=== PATIENT | female | born 1940 | race Caucasian/White ===

== ENCOUNTER 2021-08-31 09:25 | Inpatient (IN) | payer MEDICARE ==
[~2021-08-31] VITALS: Ht 165.1 cm; Wt 75.5 kg
[~2021-08-31 09:25] MED LIST: ACET500T68 PO; ASPI-424 PO; ATOR40TA59 PO; BUTA-177 PO; CARV3.1210 PO; CEPH500T PO; FLUT16SP NS; FURO20TA3 PO; GABA300C18 PO; MAGN400T48 PO; MELA5TAB20 PO; MULT-114 PO; OXYC5TAB88 PO; POLY17PO29 PO; QUIN5TAB13 PO; SENN8.6T11 PO; TAMS0.4C97 PO; TURM500C4 PO; UBID200C7 PO; WARF3TAB50 PO; prostat PO
[2021-08-31] MEDS ORDERED: PIPERACILLIN/TAZOBACTAM 4.5 GM in IV DEXTROSE 5% 100ML 100 ML IV ONE (09:30)
[2021-08-31] MEDS ORDERED: VANCOMYCIN 1.5 GM in IV NORMAL SALINE 500ML BAG 500 ML IV ONE (09:30)
[2021-08-31] MEDS ORDERED: IV NORMAL SALINE 1000ML BAG 1,000 ML IV ONE (09:30)
[2021-08-31 09:59] LABS: BASO # 0.1 x10^3/uL (0.0-0.2); BASO % 1 % (0-3); EOS # 0.1 x10^3/uL (0.0-0.7); EOS % 2 % (0-3); HEMATOCRIT 26.8 % (36.0-47.0); HEMOGLOBIN 8.4 g/dL (12.0-15.5); LYMPH # 1.2 x10^3/uL (1.0-4.8); LYMPH % 26 % (24-48); MEAN CORPUSCULAR HEMOGLOBIN 25 pg (25-35); MEAN CORPUSCULAR HGB CONC 31 g/dL (31-37); MEAN CORPUSCULAR VOLUME 79 fL (79-100); MONO # 0.4 x10^3/uL (0.0-1.1); MONO % 9 % (0-9); NEUT % 62 % (31-73); PLATELET COUNT 218 x10^3/uL (140-400); RED BLOOD COUNT 3.38 x10^6/uL (3.50-5.40); RED CELL DISTRIBUTION WIDTH 16.6 % (11.5-14.5); WHITE BLOOD COUNT 4.9 x10^3/uL (4.0-11.0)
[2021-08-31 10:18] LABS: CALCIUM 7.4 mg/dL (8.5-10.1); CREATININE 0.8 mg/dL (0.6-1.0); GFR 68.7; POTASSIUM 4.6 mmol/L (3.5-5.1)
--- NOTE | 2021-08-31 10:20 | RAD ---
EXAM: Chest, single view. HISTORY: Covid. Sepsis. Hypoxia. COMPARISON: 08/11/2021 FINDINGS: A frontal view of the chest obtained. There is stable diffuse increased interstitial opacit y. There is stable cardiomegaly. There is a cardiac pacemaker in expected position. There is no pneum othorax or pleural effusion. IMPRESSION: Stable diffuse interstitial prominence and cardiomegaly. Electronically signed by: Tonia Delgado MD (08/31/2021 10:18 AM) [facility]
[2021-08-31 10:29] LABS: ALBUMIN 1.8 g/dL (3.4-5.0); ALBUMIN/GLOBULIN RATIO 0.5 (1.0-1.7); TOTAL BILIRUBIN 0.3 mg/dL (0.2-1.0); TOTAL PROTEIN 5.6 g/dL (6.4-8.2)
[2021-08-31] MEDS ORDERED: HALOPERIDOL LACTATE 5 MG/ML VIAL. IVP ONE (10:45)
[2021-08-31 10:51] LABS: BILIRUBIN,URINE SMALL (NEG); COLOR,URINE AMBER; NITRITE,URINE POSITIVE (NEG); PROTEIN,URINE >=300 mg/dL (NEG-TRACE)
[2021-08-31 10:52] LABS: INFLUENZA A PATIENT NEGATIVE (NEGATIVE); INFLUENZA B PATIENT NEGATIVE (NEGATIVE)
--- NOTE | 2021-08-31 10:55 | PHYS DOC ---
Past Medical History Past Medical History: A-Fib, Anemia, CHF, COPD, Hypertension, TIA Additional Past Medical Histor: UIRNARY RETENTION, WARFARIN, DVT W/ SX, NEUROPATHY, HEADACHE, CONFUSION Past Surgical History: Cholecystectomy, Hysterectomy Additional Past Surgical Histo: DVT REMOVAL Smoking Status: Unknown if ever smoked Alcohol Use: None Drug Use: None General Adult EDM: Chief Complaint: ALTERED MENTAL STATUS HPI: HPI: Patient is a 80 year old female with history of A. fib, DVT, COPD, CHF, chronic wounds with left groin wound vac, chronic indwelling lei who presents with hypoxia after testing positive for COVID today 08/31/21. Was hypoxic to mid 80s on room air. Has been become increasingly agitated. Per her PCP she has been frequently agitating it and screaming for the past several weeks. They have tried different medications as an outpatient, not yet with success. Patient states that she "hurts everywhere." Unable to obtain further history from patient due to mental status. Review of Systems: Review of Systems: Unable to obtain due to mental status Heart Score: C/O Chest Pain: N/A Current Medications: Current Medications Medications (Trade) Dose Ordered Sig/Genet Start Time Stop Time Status Last Admin Dose Admin Haloperidol Lactate (Haldol Inj) 1 mg 1X ONCE 08/31/21 10:45 08/31/21 10:46 Piperacillin Sod/ Tazobactam Sod 4.5 gm/Dextrose 100 ml @ 200 mls/hr 1X ONCE 08/31/21 09:30 08/31/21 09:59 DC 08/31/21 09:59 200 MLS/HR Sodium Chloride 1,000 ml @ 1,000 mls/hr 1X ONCE 08/31/21 09:30 08/31/21 10:29 DC 08/31/21 09:59 1,000 MLS/HR Vancomycin HCl 1.5 gm/Sodium Chloride 500 ml @ 250 mls/hr 1X ONCE 08/31/21 09:30 08/31/21 11:29 08/31/21 09:59 250 MLS/HR Allergies: Allergies: Allergies Coded Allergies Type Severity Reaction Last Updated Verified Sulfa (Sulfonamide Antibiotics) Allergy Intermediate 08/11/21 Yes acetaminophen Allergy Intermediate 08/11/21 Yes dextromethorphan Allergy Intermediate 08/11/21 Yes doxylamine Allergy Intermediate 08/11/21 Yes hydrocodone Allergy Intermediate 08/11/21 Yes morphine Allergy Intermediate 08/11/21 Yes oxycodone Allergy Intermediate 08/11/21 Yes pseudoephedrine Allergy Intermediate 08/11/21 Yes Physical Exam: PE: Constitutional: Nontoxic appearing HENT: Normocephalic, atraumatic Neck: Normal range of motion, no tenderness, supple, no stridor. [] Cardiovascular:Heart rate regular rhythm, no murmur [] Lungs & Thorax: Bilateral wheezes, normal work of breathing, satting mid 80s on room air. Abdomen: Soft, no discernible tenderness Extremities: No tenderness, no cyanosis, no clubbing, ROM intact, no edema. [] Neurologic: Screaming, agitated, moving all 4 extremities with purpose and intact automotive sales specialist strength. Psychologic: Affect normal, judgement normal, mood normal. [] Current Patient Data: Labs: Laboratory Tests Test 08/31/21 09:30 White Blood Count 4.9 x10^3/uL (4.0-11.0) Red Blood Count 3.38 x10^6/uL (3.50-5.40) L Hemoglobin 8.4 g/dL (12.0-15.5) L Hematocrit 26.8 % (36.0-47.0) L Mean Corpuscular Volume 79 fL (79-100) Mean Corpuscular Hemoglobin 25 pg (25-35) Mean Corpuscular Hemoglobin Concent 31 g/dL (31-37) Red Cell Distribution Width 16.6 % (11.5-14.5) H Platelet Count 218 x10^3/uL (140-400) Neutrophils (%) (Auto) 62 % (31-73) Lymphocytes (%) (Auto) 26 % (24-48) Monocytes (%) (Auto) 9 % (0-9) Eosinophils (%) (Auto) 2 % (0-3) Basophils (%) (Auto) 1 % (0-3) Neutrophils # (Auto) 3.0 x10^3/uL (1.8-7.7) Lymphocytes # (Auto) 1.2 x10^3/uL (1.0-4.8) Monocytes # (Auto) 0.4 x10^3/uL (0.0-1.1) Eosinophils # (Auto) 0.1 x10^3/uL (0.0-0.7) Basophils # (Auto) 0.1 x10^3/uL (0.0-0.2) Sodium Level 139 mmol/L (136-145) Potassium Level 4.6 mmol/L (3.5-5.1) Chloride Level 104 mmol/L (98-107) Carbon Dioxide Level 25 mmol/L (21-32) Anion Gap 10 (6-14) Blood Urea Nitrogen 21 mg/dL (7-20) H Creatinine 0.8 mg/dL (0.6-1.0) Estimated GFR (Cockcroft-Gault) 68.7 BUN/Creatinine Ratio 26 (6-20) H Glucose Level 101 mg/dL (70-99) H Lactic Acid Level 1.1 mmol/L (0.4-2.0) Calcium Level 7.4 mg/dL (8.5-10.1) L Total Bilirubin 0.3 mg/dL (0.2-1.0) Aspartate Amino Transferase (AST) 32 U/L (15-37) Alanine Aminotransferase (ALT) 12 U/L (14-59) L Alkaline Phosphatase 80 U/L (46-116) Troponin I High Sensitivity 54 ng/L (4-50) H Total Protein 5.6 g/dL (6.4-8.2) L Albumin 1.8 g/dL (3.4-5.0) L Albumin/Globulin Ratio 0.5 (1.0-1.7) L Laboratory Tests 08/31/21 09:30 Laboratory Tests 08/31/21 09:30 Vital Signs: Vital Signs Date Time Temp Pulse Resp B/P (MAP) Pulse Ox O2 Delivery O2 Flow Rate FiO2 08/31/21 09:30 101.3 104 22 182/81 (114) 99 Nasal Cannula 2.0 101.3 EKG: EKG: A. fib. Left bundle branch pattern. Left axis deviation. No significant ST changes. [] Radiology/Procedures: Radiology/Procedures: [] Course & Med Decision Making: Course & Med Decision Making Pertinent Labs and Imaging studies reviewed. (See chart for details) Patient 80-year-old female with history of dementia, behavioral disturbance, COPD, CHF, A. fib/DVT on warfarin, chronic left groin wound with wound VAC, indwelling Lei and Covid positive as of today who presents with hypoxia to the mid 80s on room air. On arrival has stabilized on 2 L/min nasal cannula. Vital signs otherwise stable. Febrile in the ED to 101.3 F. Unfortunately has an acetaminophen allergy. Has been treated with IV fluids, broad-spectrum antibiotics. Chest x-ray shows stable interstitial changes. Will be given dexamethasone for COVID and fo audible wheezing. Discussed admission with patient's PCP, Dr. Romero. Will be admitted for further evaluation. [id number] Dragon Disclaimer: Dragon Disclaimer: This electronic medical record was generated, in whole or in part, using a voice recognition dictation system. Departure Departure Impression: Primary Impression: COVID-19 Additional Impressions: Hypoxia Delirium Disposition: ADMITTED INPATIENT Condition: GUARDED Referrals: LUCAS ROMERO MD (PCP) JOSE LUIS ZUNIGA MD Aug 31, 2021 10:55
[2021-08-31] MEDS ORDERED: DEXAMETHASONE SOD PHOS 4 MG/ML VIAL IVP ONE (11:00)
[2021-08-31 11:06] LABS: CLARITY,URINE HAZY
[2021-08-31 11:09] LABS: BACTERIA,URINE MANY /HPF (0-FEW); WBC,URINE TNTC /HPF (0-4)
--- NOTE | 2021-08-31 11:25 | RAD ---
EXAM: Head CT without contrast. HISTORY: Altered mental status. TECHNIQUE: Computed tomographic images of the head were obtained without contrast. *One or more of the following individualized dose reduction techniques were utilized for this examina tion: 1. Automated exposure control. 2. Adjustment of the mA and/or kV according to patient size. 3. Use of iterative reconstruction technique. COMPARISON: 08/12/2021. FINDINGS: There is no acute or subacute extra-axial or intraparenchymal hemorrhage. There is no mass effect or midline shift. There is no hydrocephalus. There are areas of decreased attenuation within the cerebral white matter, nonspecific and likely rel ated to chronic small vessel disease. There is evidence of lens surgery. There is a small amount of mastoid fluid. The paranasal sinuses ar e clear. There is no suspicious calvarial lesion. IMPRESSION: 1. No acute intracranial finding. Note is made that MRI is more sensitive for acute infarction. 2. Bilateral cerebral white matter changes, likely due to chronic small vessel disease. Electronically signed by: Tonia Delgado MD (08/31/2021 11:22 AM) [facility]
[2021-08-31 12:55] VITALS: BP 172/65
[2021-08-31] MEDS ORDERED: FAMO20TA5 PO (13:29)
[2021-08-31] MEDS ORDERED: LORA0.5T96 PO (13:29)
[2021-08-31] MEDS ORDERED: ACETAMINOPHEN 500 MG TABLET PO PRN (13:45)
[2021-08-31] MEDS ORDERED: POLYETHYLENE GLYCOL 3350 17 GM PACKET. PO PRN (13:45)
[2021-08-31] MEDS ORDERED: FLUTICASONE 50MCG/NASAL SPRAY 16GM BOTTLE. NS PRN (13:45)
[2021-08-31] MEDS ORDERED: PIP/TAZO PER PHARMACY MC PRN (14:00)
[2021-08-31] MEDS ORDERED: BUTALB/APAP/CAFEIN 50/325/40MG TABLET. PO PRN (14:00)
--- NOTE | 2021-08-31 14:03 | NUR ---
PT HAS INTACT/WORKING WOUND VAC TO L GROIN AREA, VAC CAME WITH HER FROM FACILITY.
--- NOTE | 2021-08-31 14:17 | HP ---
DATE OF SERVICE: 08/31/2021 ADMIT DATE: 08/31/2021 HISTORY OF PRESENT ILLNESS: The patient is an 80-year-old female patient, a resident at [facility] in [place], who was brought to the Emergency Room with altered mental status. She apparently tested positive for COVID today at that facility and her oxygen saturation was down to 80% on room air. She has been increasingly agitated, stating help me, help me constantly. We tried some Ativan without much success. The patient stated that she is hurting everywhere; however, she is unable to be more specific about what is causing her pain. She was evaluated extensively in the Emergency Room, has had lab work and imaging studies. Her lab work showed that she has normochromic normocytic anemia. Her prothrombin time was 24 and INR of 2.2, which is well within therapeutic range. Her chemistry was mostly unremarkable; however, her urinalysis showed the patient's nitrites were positive. There was large amount of leukocyte esterase, 6-10 rbc's, oga-ooykvkvf-gg-count wbc's and many bacteria. Her influenza A and B were negative; however, SARS-CoV-2 antigen rapid testing was positive. Her CT scan of the head showed no acute intracranial finding. Note is made that MRI is more sensitive for acute infarction, bilateral cerebral white matter changes, likely due to chronic small vessel disease. Her chest x-ray showed that she has stable, diffuse, increased interstitial opacity. There was stable cardiomegaly. There was a cardiac pacemaker in expected position. There was no pneumothorax or pleural effusion. The patient was admitted with COVID-19 infection, acute hypoxic respiratory failure, delirium, urinary tract infection and has multiple wounds on her right big toe, right heel and right calf area as well as on her right gluteal area. She has wounds on the left groin that is covered with wound vacuum-assisted closure device. She was treated with IV vancomycin and Zosyn and was admitted for further evaluation and treatment. PAST MEDICAL HISTORY: Significant for atrial fibrillation, rate controlled, well anticoagulated; nonischemic cardiomyopathy; age-related macular degeneration; hypertension; obstructive sleep apnea; sick sinus syndrome, status post permanent pacemaker; blood loss anemia; TIA; chronic combined congestive heart failure and chronic hypoxic respiratory failure. PAST SURGICAL HISTORY: Significant for permanent pacemaker implantation, cholecystectomy, total abdominal hysterectomy, bilateral salpingo-oophorectomy. She also underwent left lower extremity thrombectomy and developed wound in the left groin covered with wound vacuum-assisted closure device. ALLERGIES: SHE IS ALLERGIC TO TYLENOL, DEXTROMETHORPHAN, DOXYLAMINE, HYDROCODONE, MORPHINE, OXYCODONE, SULFA AND PSEUDOEPHEDRINE. FAMILY HISTORY: Noncontributory. SOCIAL HISTORY: She is currently residing at [facility] in [place]. She used to live with her daughter. She is an ex-smoker, quit more than 40 years ago. She used to drink alcohol. She has retired from the [employer]. REVIEW OF SYSTEMS: Unobtainable. The patient is constantly asking for help; however, she is unable to give me more specific information. MEDICATIONS: She is currently on the following medications: She is on tamsulosin 0.4 mg every 24 hours. She is on warfarin sodium 3 mg at bedtime, atorvastatin calcium 40 mg at bedtime, carvedilol 3.125 mg twice a day with meal, quinapril 5 mg once a day, aspirin 81 mg once a day, butalbital/aspirin/caffeine 1 tablet as needed for headache. She is on oxycodone 5 mg every 4 hours as needed, oxycodone 2.5 mg every 4 hours as needed, acetaminophen 1000 mg every 8 hours, gabapentin 300 mg twice a day, Flonase 1 spray to each nostril twice a day. She is on magnesium oxide 400 mg once a day, polyethylene glycol 17 grams daily p.r.n. for constipation, senna 1 tablet twice a day, multivitamin with mineral 1 tablet once a day and melatonin 5 mg at bedtime. She is also on turmeric root extract 4 capsules daily, CoQ10 200 mg once a day, Pro-Stat 30 mL p.o. b.i.d. PHYSICAL EXAMINATION: GENERAL: On arrival to the Emergency Room, she was pale, not jaundiced or cyanosed. No lymphadenopathy, no thyromegaly, no jugular venous distention. No limb edema. VITAL SIGNS: Her heart rate was 104, blood pressure was 182/81, temperature was 101.3, respiratory rate was 22 and oxygen saturation was 99% on 2 liters of oxygen. HEAD, EYES, EARS, NOSE AND THROAT: Normocephalic, atraumatic. NECK: Supple. HEART: Normal first and second heart sounds. No gallop, rub or murmur. CHEST: Shows central trachea, equal bilateral chest expansion, air entry, vesicular breath sounds. No crepitation or rhonchi. ABDOMEN: Scaphoid, soft, nontender. There is no guarding or rigidity. No organomegaly. All hernial orifice intact. Bowel sounds normal. NEUROLOGIC: She is awake, alert, but confused. All her cranial nerves are intact. She moves upper extremities to a much good extent than lower extremities. She has wound in the left groin area covered with wound vacuum-assisted closure device. She has wounds on the right big toe, right heel, right calf and also on the right buttock. LABORATORY DATA: Her lab work on arrival showed a white cell count 4900, hemoglobin 8.4, hematocrit 26.8, MCV 79 and platelet count 218,000. Her chemistry showed a serum sodium of 139, potassium 4.6, chloride 104, bicarbonate 25, anion gap of 10, BUN 21, creatinine was 0.8. Estimated GFR was 68 mL per minute. Her glucose 101, lactic acid was 1.1, calcium was 7.4. Total bilirubin, AST, ALT, alkaline phosphatase were normal. Her troponin I high sensitivity was 54. Total protein 5.6, albumin was 1.8. Her prothrombin time 24 and INR of 2.2, which is well within therapeutic range. ASSESSMENT AND PLAN: In summary, this is an 80-year-old female patient who was admitted with COVID-19 infection, acute hypoxic respiratory failure, urinary tract infection, multiple necrotic wounds on the right lower extremity involving right big toe, right heel, right calf. She has also an indwelling Martinez catheter and she has urinary tract infection. On arrival, she was febrile and therefore, her blood and urine were sent for culture and sensitivity. My plan is to reconcile all her medications and continue with IV antibiotic. We will arrange for her to have arterial Doppler ultrasound of the right lower extremity. Consult the vascular surgeon as well as the Wound Care team. HARVINDER/ROLANDA DR: Fadumo TID: [id number]
[2021-08-31] MEDS: VANCOMYCIN PER PHARMACY MC PRN (14:34)
--- NOTE | 2021-08-31 14:34 | NUR ---
Pharmacy Vancomycin Dosing Note S:Consulted to monitor and dose vancomycin started 08/31/21. O:MALIHA LOPEZ is a 80 year old F with pneumonia. Height: 5 feet, 5 inches Weight: 77.0 kg Dosing Weight: Actual Other Antibiotics: ZOSYN 4.5G IV Q6HRS LABS: Last BUN: 21 Last Creatinine: 0.8 Creatinine Clearance: 44 mL/min Last WBC: 4.9 Last Procalcitonin: Tmax (past 24 hours): 101.3 Microbiology: BLOOD AND URINE CX PENDING I/O: 1100/- A: Patient requires vancomycin for pneumonia, goal trough 15-20 mcg/ml/ Her SCr is 0.8 with an eCrCl of 44 ml/min. She received vancomycin 1500 mg x 1 in the ER today. Initiate the following, starting 09/01/21: P: 1. Initiate Vancomycin 1250 mg IV q24h 2. Follow up Trough level on 09/02/21 at 0930 3. Pharmacy will continue to monitor, follow and adjust therapy as needed. ANAM NEWTON [facility], 08/31/21 [id number]
[2021-08-31 15:00] VITALS: BP 158/63
[2021-08-31] MEDS: CARVEDILOL 3.125 MG TABLET. PO SCH (16:26)
[2021-08-31] MEDS: WARFARIN 3 MG TABLET. PO SCH (16:27)
[2021-08-31] MEDS: PIPERACILLIN/TAZOBACTAM 4.5 GM in IV DEXTROSE 5% 100ML 100 ML IV SCH (16:57)
--- NOTE | 2021-08-31 18:08 | EKG ---
[facility] [address] [place] [address] Test Date: 2021-08-31 Test Time: 09:46:53 Pat Name: MALIHA LOPEZ Department: Room: 569 1 Gender: F Drywall Hanger: : 1940 Requested By: JOSE LUIS ZUNIGA Order Number: [id number] Reading MD: Lance Salas MD Measurements Intervals [place] Rate: 99 P: MS: QRS: -36 QRSD: 116 T: 104 QT: 380 QTc: 494 Interpretive Statements ATRIAL FIBRILLATION SEPTAL INFARCT PATTERN Electronically Signed On 09-08-2021 16:34:36 [employer] by Lance Salas MD
[2021-08-31 19:15] VITALS: BP 167/84
[2021-08-31] MEDS: FAMOTIDINE 20 MG TABLET. PO SCH (20:31)
[2021-08-31] MEDS: ATORVASTATIN CALCIUM 40 MG TABLET. PO SCH (20:32)
[2021-08-31] MEDS: SENNOSIDES 8.6 MG TABLET PO SCH (20:32)
[2021-08-31] MEDS: LACTOBACILLUS RHAMNOSUS GG 1 CAPSULE. PO SCH (20:32)
[2021-08-31] MEDS: LORazepam 0.5 MG TABLET PO PRN (20:32)
[2021-08-31] MEDS: GABAPENTIN 300 MG CAPSULE. PO SCH (20:32)
[2021-08-31] MEDS: oxyCODONE IR 5 MG TABLET PO PRN (20:32)
[2021-08-31] MEDS ORDERED: NON FORMULARY ITEM (Melatonin 1 TAB) PO SCH (21:00)
[2021-08-31 23:01] VITALS: BP 171/64
[2021-09-01] MEDS: PIPERACILLIN/TAZOBACTAM 4.5 GM in IV DEXTROSE 5% 100ML 100 ML IV SCH ×5 (00:29→23:25)
--- NOTE | 2021-09-01 02:11 | RAD ---
US RIGHT LOWER EXTREMITY ARTERIAL DUPLEX EVAL 08/31/2021 8:02 PM INDICATION: Necrotic lesions COMPARISON: None available. TECHNIQUE: Sonographic evaluation of the right lower extremity arterial system was performed as an g rayscale, color and spectral waveform analysis. FINDINGS: Biphasic waveforms are identified within the common femoral artery, profunda, and proximal to mid sup erficial femoral artery. The distal right superficial femoral artery appears occluded. Monophasic wav eform identified within the popliteal artery. The posterior tibial, peroneal and dorsalis pedis arter ies are not visualized. Common femoral artery: 105 cm/s Profunda artery: 129 cm/s Superficial femoral artery, proximal: 45 cm/s Superficial femoral artery, mid: 38 cm/s Superficial femoral artery, distal: Not visualized and may be occluded Popliteal artery: 47 cm/s Anterior tibial artery: 20 cm/s IMPRESSION: Severe peripheral arterial disease with likely occlusion of the distal right superficial femoral misha ry, posterior tibial artery and peroneal artery. Further evaluation with CT aortic runoff or catheter angiography could be of benefit. Electronically signed by: Yesenia Keyes MD (09/01/2021 2:09 AM) [facility]
[2021-09-01 03:19] VITALS: BP 153/77
[2021-09-01] MEDS: oxyCODONE IR 5 MG TABLET PO PRN ×2 (06:16→19:46)
[2021-09-01 06:58] LABS: HEMOGLOBIN 8.9 g/dL (12.0-15.5); RED BLOOD COUNT 3.54 x10^6/uL (3.50-5.40); RED CELL DISTRIBUTION WIDTH 17.3 % (11.5-14.5); WHITE BLOOD COUNT 4.9 x10^3/uL (4.0-11.0)
[2021-09-01 07:00] VITALS: BP 147/52
[2021-09-01 07:10] LABS: ALBUMIN 1.6 g/dL (3.4-5.0); ALBUMIN/GLOBULIN RATIO 0.4 (1.0-1.7); CALCIUM 7.2 mg/dL (8.5-10.1); CREATININE 0.9 mg/dL (0.6-1.0); GFR 59.9; TOTAL BILIRUBIN 0.5 mg/dL (0.2-1.0); TOTAL PROTEIN 5.9 g/dL (6.4-8.2)
[2021-09-01 07:54] LABS: PROTHROMBIN TIME PATIENT 39.5 SEC (11.7-14.0)
[2021-09-01] MEDS: MULTIVITAMIN with MINERAL TABLET. PO SCH (08:11)
[2021-09-01] MEDS: LACTOBACILLUS RHAMNOSUS GG 1 CAPSULE. PO SCH ×2 (08:11→20:46)
[2021-09-01] MEDS: TAMSULOSIN 0.4 MG CAP.ER.24H. PO SCH (08:11)
[2021-09-01] MEDS: LISINOPRIL 5 MG TABLET. PO SCH (08:11)
[2021-09-01] MEDS: MAGNESIUM OXIDE 400 MG TABLET PO SCH (08:11)
[2021-09-01] MEDS: ASPIRIN ENTERIC COATED 81 MG TABLET.DR. PO SCH (08:12)
[2021-09-01] MEDS: SENNOSIDES 8.6 MG TABLET PO SCH ×2 (08:12→20:46)
[2021-09-01] MEDS: CARVEDILOL 3.125 MG TABLET. PO SCH ×2 (08:12→17:46)
[2021-09-01] MEDS: GABAPENTIN 300 MG CAPSULE. PO SCH ×2 (08:13→20:46)
[2021-09-01] MEDS ORDERED: NON FORMULARY ITEM (Ubidecarenone (Co Q-10) 1 CAP) PO SCH (09:00)
[2021-09-01] MEDS ORDERED: VANCOMYCIN 1.25 GM in IV NORMAL SALINE 250ML 250 ML IV SCH (10:00)
--- NOTE | 2021-09-01 10:17 | PN ---
DATE: 09/01/2021 SUBJECTIVE: The patient is resting slightly propped up in bed, in no apparent distress, sleepy, but arousable. She was very lethargic, probably heavily sedated. She apparently received some Ativan as well as pain medication this morning. PHYSICAL EXAMINATION: GENERAL: When I examined her, she was pale, somewhat cachectic, but not jaundiced or cyanosed. No lymphadenopathy, no thyromegaly, no jugular venous distention. No limb edema. VITAL SIGNS: Her heart rate was 77, blood pressure was 153/77, temperature 97, respiratory rate was 16 and oxygen saturation was 100% on 2 liters of oxygen. HEAD, EYES, EARS, NOSE, AND THROAT: Normocephalic, atraumatic. NECK: Supple. HEART: Showed normal first and second heart sounds. No gallop, rub or murmur. CHEST: Clear to auscultation. No crepitation or rhonchi. ABDOMEN: Distended, soft, nontender. NEUROLOGIC: She is lethargic, but arousable. All cranial nerves intact. She moves upper extremities without difficulty. She has a wound in the left groin area covered with wound vacuum-assisted closure device. She has multiple necrotic wounds on the right big toe, right heel and right calf area. Her intake over the last 24 hours and output are incompletely recorded. LABORATORY DATA: This morning showed a white cell count 4900, hemoglobin 8.9, hematocrit 28, MCV 79 and platelet count of 184,000. Her chemistry showed a serum sodium 140, potassium 4, chloride 105, bicarbonate 24, anion gap of 11, BUN 22, creatinine 0.9. Estimated GFR was 60 mL per minute. Her glucose 172, calcium was 7.2. Her serum ferritin was 250. Total bilirubin, AST, ALT, alkaline phosphatase were normal. Total protein 5.9, albumin was 1.6. Her prothrombin time was 39.5, INR of 4.2. Urinalysis showed that the patient has large amount of leukocyte esterase, too numerous to count wbc's and many bacteria. Her blood culture showed no growth after 1 day. IMAGING: We did actually arterial Doppler ultrasound, which showed that the patient has severe peripheral arterial disease with likely occlusion of the distal right superficial femoral artery, posterior tibial artery and peroneal artery. Further evaluation with CT aortic runoff or catheter angiography could be of benefit. ASSESSMENT: 1. COVID-19 infection. 2. Acute hypoxic respiratory failure. 3. Urinary tract infection. 4. Severe peripheral arterial disease with multiple necrotic wounds on the right lower extremity involving right big toe, right heel and right calf area. 5. She has an indwelling Martinez catheter. 6. The patient has multiple preexisting conditions include: A. Atrial fibrillation, rate controlled, well anticoagulated. B. Nonischemic cardiomyopathy. C. Age-related macular degeneration D. Hypertension. E. Obstructive sleep apnea. F. Sick sinus syndrome, status post permanent pacemaker. G. Blood loss anemia. H. Chronic combined congestive heart failure. PLAN: Obviously to continue with IV antibiotic, await the result of the urine and blood culture. Continue with pain management. Continue with all other medication. Continue to monitor her prothrombin time, INR and adjust Coumadin to maintain INR between 2-2.5. Her INR is supratherapeutic today. We will hold Coumadin. ANTONELLA DR: Fadumo TID: [id number]
[2021-09-01 11:00] VITALS: BP 128/51
--- NOTE | 2021-09-01 13:18 | PDOC2 ---
CONSULT Date of Service Date of Service DATE: 09/01/21 TIME: 13:09 Reason for Consult Reason for Consult: right foot gangrene Identification/Chief Complaint Chief Complaint right foot gangrene Source Source: Chart review, Patient History of Present Illness Reason for Visit: Ms. Kelly is an 80-year-old female who is well-known to our service from a recent admission at [facility] for left lower extremity acute limb ischemia related to atrial fibrillation. She is status post left lower extremity thrombectomy and left groin wound debridement and wound VAC placement. She was seen by Dr. Pineda on 08/07/2021 for a postoperative visit and was found at that time to have right foot pain and gangrenous changes to the right foot. Based on his physical exam findings from his note this appears to have progressed. She does have gangrene of the posterior aspect of the right calf which extends midway up the calf as well as gangrene of the right foot. She is unable to plantar or dorsiflex either foot and she appears to have limited sensation. She does state that she has worsened pain in the right foot and that she is nonambulatory in either lower extremity. Her history is primarily obtained from the chart as she has some degree of confusion at baseline which has worsened apparently with this hospital admission and her Covid positive state. She was on therapeutic anticoagulation with coumadin and has a supratherapeutic INR at this point. Past Medical History Cardiovascular: HTN, Hyperlipidemia CENTRAL NERVOUS SYSTEM: Dementia Musculoskeletal: Osteoarthritis Renal/: No pertinent hx Past Surgical History Past Surgical History: Other (LLE thrombectomy and left groin wound debridement with vac placement) Family History Family History: No Significant Social History ALCOHOL: none Drugs: None Lives: Intermediate Current Problem List Problem List Problems Medical Problems: (1) COVID-19 Status: Acute (2) Delirium Status: Acute (3) Hypoxia Status: Acute Current Medications Current Medications Current Medications Sodium Chloride 1,000 ml @ 1,000 mls/hr 1X ONCE IV Last administered on 08/31/21at 09:59; Start 08/31/21 at 09:30; Stop 08/31/21 at 10:29; Status DC Piperacillin Sod/ Tazobactam Sod 4.5 gm/Dextrose 100 ml @ 200 mls/hr 1X ONCE IV Last administered on 08/31/21at 09:59; Start 08/31/21 at 09:30; Stop 08/31/21 at 09:59; Status DC Vancomycin HCl 1.5 gm/Sodium Chloride 500 ml @ 250 mls/hr 1X ONCE IV Last administered on 08/31/21at 09:59; Start 08/31/21 at 09:30; Stop 08/31/21 at 11:29; Status DC Haloperidol Lactate (Haldol Inj) 1 mg 1X ONCE IVP Last administered on 08/31/21at 11:20; Start 08/31/21 at 10:45; Stop 08/31/21 at 10:46; Status DC Dexamethasone Sodium Phosphate (Decadron) 6 mg 1X ONCE IVP Last administered on 08/31/21at 11:20; Start 08/31/21 at 11:00; Stop 08/31/21 at 11:01; Status DC Acetaminophen (Tylenol) 1,000 mg PRN Q6HRS PRN PO MILD PAIN/TEMP; Start 08/13 at 13:45 Aspirin (Ecotrin) 81 mg DAILY PO Last administered on 09/01/21at 08:12; Start 09/01/21 at 09:00 Atorvastatin Calcium (Lipitor) 40 mg HS PO Last administered on 08/31/21 20:32; Start 08/31/21 at 21:00 Carvedilol (Coreg) 3.125 mg BIDWMEALS PO Last administered on 09/01/21at 08:12; Start 08/31/21 at 17:00 Famotidine (Pepcid) 20 mg QHS PO Last administered on 08/31/21at 20:31; Start 08/31/21 at 21:00 Fluticasone Propionate (Flonase) 1 spray PRN DAILY PRN NS ALLERGIES; Start 08/31/21 at 13:45 Gabapentin (Neurontin) 300 mg BID PO Last administered on 09/01/21at 08:13; Start 08/31/21 at 21:00 Lorazepam (Ativan) 0.5 mg PRN Q4HRS PRN PO ANXIETY / AGITATION Last administered on 08/31/21at 20:32; Start 08/31/21 at 13:45 Magnesium Oxide (Magnesium Oxide) 400 mg DAILY PO Last administered on 09/01/21at 08:11; Start 09/01/21 at 09:00 Oxycodone HCl (Roxicodone) 5 mg PRN Q4HRS PRN PO SEVERE PAIN 7-10 Last administered on 09/01/21at 06:16; Start 08/31/21 at 13:45 Polyethylene Glycol (miraLAX PACKET) 17 gm PRN DAILY PRN PO CONSTIPATION; Start 08/31/21 at 13:45 Sennosides (Senna) 8.6 mg BID PO Last administered on 09/01/21at 08:12; Start 08/31/21 at 21:00 Tamsulosin HCl (Flomax) 0.4 mg DAILY PO Last administered on 09/01/21at 08:11; Start 09/01/21 at 09:00 Warfarin Sodium (Coumadin) 3 mg DAILY16 PO Last administered on 08/31/21at 16:27; Start 08/31/21 at 16:00 Acetaminophen/ Butalbital/ Caffeine (Fioricet) 1 tab PRN DAILY PRN PO MIGRAINE HEADACHE; Start 08/31/21 at 14:00 Non-Formulary Medication (Melatonin ) 1 tab QHS PO ; Start 08/31/21 at 21:00; Status UNV Multivitamins (Thera M Plus) 1 tab DAILY PO Last administered on 09/01/21at 08 :11; Start 09/01/21 at 09:00 Lisinopril (Prinivil) 5 mg DAILY PO Last administered on 09/01/21at 08:11; Start 09/01/21 at 09:00 Non-Formulary Medication (Ubidecarenone (Co Q-10)) 1 cap DAILY PO ; Start 09/01/21 at 09:00; Status UNV Vancomycin HCl (Vanco Per Pharmacy) 1 each PRN DAILY PRN MC SEE COMMENTS Last administered on 08/31/21at 14:34; Start 08/31/21 at 14:00 Piperacillin Sod/ Tazobactam Sod (Zosyn Per Pharmacy) 1 each PRN DAILY PRN MC SEE COMMENTS; Start 08/31/21 at 14:00 Warfarin Sodium (Coumadin Per Physician) 1 each PRN DAILY PRN MC SEE COMMENTS Last administered on 08/31/21at 14:33; Start 08/31/21 at 14:00 Piperacillin Sod/ Tazobactam Sod 4.5 gm/Dextrose 100 ml @ 200 mls/hr Q6HRS IV Last administered on 09/01/21at 11:54; Start 08/31/21 at 18:00 Vancomycin HCl 1.25 gm/Sodium Chloride 250 ml @ 167 mls/hr Q24H IV Last administered on 09/01/21at 09:11; Start 09/01/21 at 10:00 Vancomycin HCl (Vancomycin Trough Level) 1 each 1X ONCE MC ; Start 09/02/21 at 09:30; Stop 09/02/21 at 09:31 Lactobacillus Rhamnosus (Culturelle) 1 cap BID PO Last administered on 09/01/21at 08:11; Start 08/31/21 at 21:00 Active Scripts Active Reported Famotidine 20 Mg Tablet 20 Mg PO BID Ativan (Lorazepam) 0.5 Mg Tablet 0.5 Mg PO PRN Q4HRS PRN Fluticasone Propionate Nasal [place] (Fluticasone Propionate) 16 Gm [place].susp 1 [place] NS PRN DAILY PRN Roxicodone (Oxycodone HCl) 5 Mg Tablet 2.5 Mg PO PRN Q4HRS PRN Roxicodone (Oxycodone HCl) 5 Mg Tablet 5 Mg PO PRN Q4HRS PRN Qveqjl-Horpxdj-Lxurd 50-325-40 (Butalbital/Aspirin/Caffeine) 1 Each Tablet 1 Tab PO PRN DAILY PRN MDD 1 Tablet(s) 30 Days Acetaminophen 500 Mg Tablet 2 Tab PO PRN Q6HRS PRN 15 Days Gabapentin (Gabapentin) 300 Mg Capsule 300 Mg PO BID Senna Laxative (Sennosides) 8.6 Mg Tablet 1 Tab PO BID 30 Days Carvedilol (Carvedilol) 3.125 Mg Tablet 3.125 Mg PO BIDWMEALS Warfarin Sodium 3 Mg Tablet 3 Mg PO QHS Flomax (Tamsulosin Hcl) 0.4 Mg Cap.er.24h 1 Cap PO DAILY Quinapril Hcl 5 Mg Tablet 1 Tab PO DAILY 30 Days Turmeric 500 mg Capsule (Turmeric/Turmeric Root Extract) 1 Each Capsule 4 Cap PO DAILY 30 Days Multivitamins With Minerals (Multivitamin With Minerals) 1 Each Tablet 1 Tab PO DAILY 30 Days Melatonin 5 Mg Tab.rapdis 1 Tab PO QHS 30 Days Miralax (Polyethylene Glycol 3350) 17 Gm Powd.pack 1 Packet PO PRN DAILY PRN 2 Days dissolve in water Magnesium Oxide 400 Mg Tablet 1 Tab PO DAILY Co Q-10 (Ubidecarenone) 200 Mg Capsule 1 Cap PO DAILY 30 Days Atorvastatin Calcium 40 Mg Tablet 40 Mg PO HS Adult Low Dose Aspirin Ec (Aspirin) 81 Mg Tablet.dr 1 Tab PO DAILY 30 Days Allergies Allergies: Coded Allergies: Sulfa (Sulfonamide Antibiotics) (Verified Allergy, Intermediate, 08/11/21) dextromethorphan (Verified Allergy, Intermediate, 08/11/21) doxylamine (Verified Allergy, Intermediate, 08/11/21) hydrocodone (Verified Allergy, Intermediate, 08/11/21) morphine (Verified Allergy, Intermediate, 08/11/21) pseudoephedrine (Verified Allergy, Intermediate, 08/11/21) ROS Review of System Unable to obtain due to patient factors Physical Exam Physical Exam Lethargic General: No acute distress Lungs: Normal air movement (Coarse cough) Heart: Regular rate Abdomen: Soft, No tenderness Extremities: Other (Palpable femoral pulses bilaterally, palpable left popliteal, palpable left DP. Nonpalpable right popliteal or right DP or PT. Gangrenous changes to the posterior aspect of the right calf extending up the mid calf. Gangrenous changes to the right great toe. Small wound to the dorsum of the left foot. No erythema or induration) Neuro: Other (Intermittently responds to questions, Lethargic) Vitals VITALS Vital Signs Date Time Temp Pulse Resp B/P (MAP) Pulse Ox O2 Delivery O2 Flow Rate FiO2 09/01/21 11:00 97.2 75 20 128/51 (76) 98 Nasal Cannula 2.0 97.2 Labs Labs Laboratory Tests Test 08/31/21 09:30 08/31/21 10:25 08/31/21 10:30 08/31/21 13:10 White Blood Count 4.9 x10^3/uL (4.0-11.0) Red Blood Count 3.38 x10^6/uL (3.50-5.40) Hemoglobin 8.4 g/dL (12.0-15.5) Hematocrit 26.8 % (36.0-47.0) Mean Corpuscular Volume 79 fL (79-100) Mean Corpuscular Hemoglobin 25 pg (25-35) Mean Corpuscular Hemoglobin Concent 31 g/dL (31-37) Red Cell Distribution Width 16.6 % (11.5-14.5) Platelet Count 218 x10^3/uL (140-400) Neutrophils (%) (Auto) 62 % (31-73) Lymphocytes (%) (Auto) 26 % (24-48) Monocytes (%) (Auto) 9 % (0-9) Eosinophils (%) (Auto) 2 % (0-3) Basophils (%) (Auto) 1 % (0-3) Neutrophils # (Auto) 3.0 x10^3/uL (1.8-7.7) Lymphocytes # (Auto) 1.2 x10^3/uL (1.0-4.8) Monocytes # (Auto) 0.4 x10^3/uL (0.0-1.1) Eosinophils # (Auto) 0.1 x10^3/uL (0.0-0.7) Basophils # (Auto) 0.1 x10^3/uL (0.0-0.2) Prothrombin Time 24.0 SEC (11.7-14.0) Prothromb Time International Ratio 2.2 (0.8-1.1) Sodium Level 139 mmol/L (136-145) Potassium Level 4.6 mmol/L (3.5-5.1) Chloride Level 104 mmol/L (98-107) Carbon Dioxide Level 25 mmol/L (21-32) Anion Gap 10 (6-14) Blood Urea Nitrogen 21 mg/dL (7-20) Creatinine 0.8 mg/dL (0.6-1.0) Estimated GFR (Cockcroft-Gault) 68.7 BUN/Creatinine Ratio 26 (6-20) Glucose Level 101 mg/dL (70-99) Lactic Acid Level 1.1 mmol/L (0.4-2.0) Calcium Level 7.4 mg/dL (8.5-10.1) Total Bilirubin 0.3 mg/dL (0.2-1.0) Aspartate Amino Transf (AST/SGOT) 32 U/L (15-37) Alanine Aminotransferase (ALT/SGPT) 12 U/L (14-59) Alkaline Phosphatase 80 U/L (46-116) Troponin I High Sensitivity 54 ng/L (4-50) 52 ng/L (4-50) Total Protein 5.6 g/dL (6.4-8.2) Albumin 1.8 g/dL (3.4-5.0) Albumin/Globulin Ratio 0.5 (1.0-1.7) Urine Collection Type Unknown Urine Color Brandee Urine Clarity Hazy Urine pH 6.0 (<5.0-8.0) Urine Specific [place] 1.020 (1.000-1.030) Urine Protein >=300 mg/dL (NEG-TRACE) Urine Glucose (UA) Negative mg/dL (NEG) Urine Ketones (Stick) Negative mg/dL (NEG) Urine Blood Large (NEG) Urine Nitrite Positive (NEG) Urine Bilirubin Small (NEG) Urine Urobilinogen Dipstick 1.0 mg/dL (0.2 mg/dL) Urine Leukocyte Esterase Large (NEG) Urine RBC 6-10 /HPF (0-2) Urine WBC Tntc /HPF (0-4) Urine Squamous Epithelial Cells Few /LPF Urine Bacteria Many /HPF (0-FEW) Influenza Type A Antigen Negative (NEGATIVE) Influenza Type B Antigen Negative (NEGATIVE) SARS-CoV-2 Antigen (Rapid) Positive (NEGATIVE) Test 09/01/21 06:30 White Blood Count 4.9 x10^3/uL (4.0-11.0) Red Blood Count 3.54 x10^6/uL (3.50-5.40) Hemoglobin 8.9 g/dL (12.0-15.5) Hematocrit 28.0 % (36.0-47.0) Mean Corpuscular Volume 79 fL (79-100) Mean Corpuscular Hemoglobin 25 pg (25-35) Mean Corpuscular Hemoglobin Concent 32 g/dL (31-37) Red Cell Distribution Width 17.3 % (11.5-14.5) Platelet Count 184 x10^3/uL (140-400) Prothrombin Time 39.5 SEC (11.7-14.0) Prothromb Time International Ratio 4.2 (0.8-1.1) Sodium Level 140 mmol/L (136-145) Potassium Level 4.0 mmol/L (3.5-5.1) Chloride Level 105 mmol/L (98-107) Carbon Dioxide Level 24 mmol/L (21-32) Anion Gap 11 (6-14) Blood Urea Nitrogen 22 mg/dL (7-20) Creatinine 0.9 mg/dL (0.6-1.0) Estimated GFR (Cockcroft-Gault) 59.9 BUN/Creatinine Ratio 24 (6-20) Glucose Level 172 mg/dL (70-99) Calcium Level 7.2 mg/dL (8.5-10.1) Iron Level 7 ug/dL (50-170) Total Iron Binding Capacity 134 ug/dL (250-450) Iron Saturation 5 % (15-34) Ferritin 250 ng/mL (8-252) Total Bilirubin 0.5 mg/dL (0.2-1.0) Aspartate Amino Transf (AST/SGOT) 11 U/L (15-37) Alanine Aminotransferase (ALT/SGPT) 9 U/L (14-59) Alkaline Phosphatase 70 U/L (46-116) Total Protein 5.9 g/dL (6.4-8.2) Albumin 1.6 g/dL (3.4-5.0) Albumin/Globulin Ratio 0.4 (1.0-1.7) Laboratory Tests Test 08/31/21 13:10 09/01/21 06:30 Troponin I High Sensitivity 52 ng/L (4-50) White Blood Count 4.9 x10^3/uL (4.0-11.0) Red Blood Count 3.54 x10^6/uL (3.50-5.40) Hemoglobin 8.9 g/dL (12.0-15.5) Hematocrit 28.0 % (36.0-47.0) Mean Corpuscular Volume 79 fL (79-100) Mean Corpuscular Hemoglobin 25 pg (25-35) Mean Corpuscular Hemoglobin Concent 32 g/dL (31-37) Red Cell Distribution Width 17.3 % (11.5-14.5) Platelet Count 184 x10^3/uL (140-400) Prothrombin Time 39.5 SEC (11.7-14.0) Prothromb Time International Ratio 4.2 (0.8-1.1) Sodium Level 140 mmol/L (136-145) Potassium Level 4.0 mmol/L (3.5-5.1) Chloride Level 105 mmol/L (98-107) Carbon Dioxide Level 24 mmol/L (21-32) Anion Gap 11 (6-14) Blood Urea Nitrogen 22 mg/dL (7-20) Creatinine 0.9 mg/dL (0.6-1.0) Estimated GFR (Cockcroft-Gault) 59.9 BUN/Creatinine Ratio 24 (6-20) Glucose Level 172 mg/dL (70-99) Calcium Level 7.2 mg/dL (8.5-10.1) Iron Level 7 ug/dL (50-170) Total Iron Binding Capacity 134 ug/dL (250-450) Iron Saturation 5 % (15-34) Ferritin 250 ng/mL (8-252) Total Bilirubin 0.5 mg/dL (0.2-1.0) Aspartate Amino Transf (AST/SGOT) 11 U/L (15-37) Alanine Aminotransferase (ALT/SGPT) 9 U/L (14-59) Alkaline Phosphatase 70 U/L (46-116) Total Protein 5.9 g/dL (6.4-8.2) Albumin 1.6 g/dL (3.4-5.0) Albumin/Globulin Ratio 0.4 (1.0-1.7) Images Images FINDINGS: Biphasic waveforms are identified within the common femoral artery, profunda, and proximal to mid superficial femoral artery. The distal right superficial femoral artery appears occluded. Monophasic waveform identified within the popliteal artery. The posterior tibial, peroneal and dorsalis pedis arteries are not visualized. Common femoral artery: 105 cm/s Profunda artery: 129 cm/s Superficial femoral artery, proximal: 45 cm/s Superficial femoral artery, mid: 38 cm/s Superficial femoral artery, distal: Not visualized and may be occluded Popliteal artery: 47 cm/s Anterior tibial artery: 20 cm/s IMPRESSION: Severe peripheral arterial disease with likely occlusion of the distal right superficial femoral artery, posterior tibial artery and peroneal artery. Further evaluation with CT aortic runoff or catheter angiography could be of benefit. Assessment/Plan Assessment/Plan 80-year-old female, Covid positive with shortness of breath and altered mental status status post recent left lower extremity thrombectomy likely related to atrial fibrillation, now with right lower extremity limb threatening ischemia -On her prior CT angiogram as well as her right lower extremity duplex there was evidence of superficial femoral as well as tibial disease. It is unlikely that she would benefit from revascularization at this point as she has full-thickness gangrene of the posterior aspect of her right calf up to the mid calf. She would most likely benefit from right lower extremity above-knee amputation given her nonambulatory status. We will attempt to reach out to her family to discuss this, as Brittaney is unable to participate in the conversation. However, this is not emergent and she can be allowed to recover from her Covid prior to intervention for this. She should continue wound VAC changes to the left groin in the interim and would consult wound care for this and care of the right foot wounds. CRISTOFER CARDENAS DO Sep 01, 2021 13:18
[2021-09-01 13:52] LABS: BASE EXCESS ABG -4 mmol/L (-3-3); HCO3 ABG 20 mmol/L (21-28); PCO2 ABG 33 mmHg (35-46); PO2 ABG 122 mmHg (65-108); SAT O2 ABG 98 % (92-99)
[2021-09-01 13:56] LABS: FIO2 ABG 3 LPM NC
[2021-09-01 15:00] VITALS: BP 117/79
[2021-09-01] MEDS: WARFARIN 3 MG TABLET. PO SCH (16:00)
--- NOTE | 2021-09-01 18:31 | NUR ---
Wound Care: Unable to see patient today for wound care. Wound will attempt again tomorrow to see this patient.
[2021-09-01] MEDS: LORazepam 0.5 MG TABLET PO PRN (19:45)
[2021-09-01] MEDS: ATORVASTATIN CALCIUM 40 MG TABLET. PO SCH (20:46)
[2021-09-01] MEDS: FAMOTIDINE 20 MG TABLET. PO SCH (20:46)
[2021-09-01 20:57] VITALS: BP 101/48
[2021-09-01 23:47] VITALS: BP 100/40
[2021-09-02 03:30] VITALS: BP 114/40
[2021-09-02] MEDS: PIPERACILLIN/TAZOBACTAM 4.5 GM in IV DEXTROSE 5% 100ML 100 ML IV SCH ×3 (05:11→17:33)
[2021-09-02 07:00] VITALS: BP 146/50
[2021-09-02 07:22] LABS: PROTHROMBIN TIME PATIENT 48.4 SEC (11.7-14.0)
[2021-09-02 07:25] LABS: GFR 53.1
[2021-09-02] MEDS: SENNOSIDES 8.6 MG TABLET PO SCH ×2 (08:50→20:21)
[2021-09-02] MEDS: TAMSULOSIN 0.4 MG CAP.ER.24H. PO SCH (08:50)
[2021-09-02] MEDS: LACTOBACILLUS RHAMNOSUS GG 1 CAPSULE. PO SCH ×2 (08:50→20:21)
[2021-09-02] MEDS: MULTIVITAMIN with MINERAL TABLET. PO SCH (08:51)
[2021-09-02] MEDS: CARVEDILOL 3.125 MG TABLET. PO SCH ×2 (08:51→16:59)
[2021-09-02] MEDS: GABAPENTIN 300 MG CAPSULE. PO SCH ×2 (08:51→20:21)
[2021-09-02] MEDS: MAGNESIUM OXIDE 400 MG TABLET PO SCH (08:51)
[2021-09-02] MEDS: ASPIRIN ENTERIC COATED 81 MG TABLET.DR. PO SCH (08:51)
[2021-09-02] MEDS: LISINOPRIL 5 MG TABLET. PO SCH (08:52)
[2021-09-02] MEDS ORDERED: PHYTONADIONE 5 MG/5 ML ORAL SOLN. PO ONE (09:45)
--- NOTE | 2021-09-02 10:05 | PN ---
DATE: 09/02/2021 SUBJECTIVE: The patient is resting, slightly propped up in bed, in no apparent respiratory distress. She is lethargic, but arousable. On questioning her, she was confused. The nursing staff did not voice any concern except that her INR has continued to be supratherapeutic. There is no evidence that she has any bleeding. PHYSICAL EXAMINATION: GENERAL: When I examined her this morning, she was pale, but not jaundiced or cyanosed. No lymphadenopathy, no thyromegaly, no jugular venous distention. No lower limb edema. VITAL SIGNS: Her heart rate was 97, blood pressure was 146/50, temperature was 101.6, respiratory rate 22, and oxygen saturation was 98%. HEAD, EYES, EARS, NOSE, AND THROAT: Normocephalic, atraumatic. NECK: Supple. HEART: Showed normal first and second heart sounds. No gallop, rub or murmur. CHEST: Clear to auscultation. No crepitation or rhonchi. ABDOMEN: Distended, soft, nontender. NEUROLOGIC: She is lethargic, but arousable. All cranial nerves intact. She moves upper extremities to a much greater extent than lower extremities. She is mostly bedbound. She has gangrenous wound involving that is full-thickness gangrene of the posterior aspect of her right calf up to the mid calf. The vascular surgeon said that she would most likely benefit from right lower extremity above-knee amputation given her nonambulatory status. She spiked her temperature also this morning up to 101.6, however, she continues to be on Zosyn and vancomycin. LABORATORY DATA: Her urine showed 3 or more organisms isolated, the results consistent with colonization and/or contamination. Her blood cultures are negative after 1 day. ASSESSMENT: 1. Asymptomatic COVID-19 infection. 2. Acute hypoxic respiratory failure. 3. Questionable urinary tract infection. 4. Severe peripheral arterial disease with multiple gangrenous wounds on the right lower extremity involving right big toe, right heel and right calf area. 5. Has an indwelling Martinez catheter. 6. The patient has multiple preexisting conditions include: A. Atrial fibrillation, rate controlled, well anticoagulated. B. Nonischemic cardiomyopathy. C. Age-related macular degeneration. D. Hypertension. E. Obstructive sleep apnea. F. Sick sinus syndrome, status post permanent pacemaker placement. G. Blood loss anemia. H. Chronic combined congestive heart failure. PLAN: To continue with antibiotic. Continue with pain management. Continue with wound care. We will reach out to her family regarding the vascular surgeon recommendation. However, given all her comorbidities, hospice and end of life care would be another option. ANTONELLA DR: Fadumo TID: [id number]
[2021-09-02 10:45] LABS: VANC TR 19.5 mcg/mL (10.0-20.0)
[2021-09-02] MEDS: VANCOMYCIN PER PHARMACY MC PRN (10:47)
--- NOTE | 2021-09-02 10:53 | NUR ---
Pharmacy Vancomycin Dosing Note S: Consulted to monitor and dose vancomycin started 08/31/21. O: MALIHA LOPEZ is a 80 year old F with Cellulitis, Pneumonia Other Antibiotics: ZOSYN 4.5G IV Q6HRS LABS: Last BUN: 22 Last Creatinine: 1 Creatinine Clearance: 44 mL/min Last WBC: 4.9 Last Procalcitonin: Tmax (past 24 hours): 101.6 Microbiology: urine: likely contamination/multiple organisms blood: NGTD I/O: 530/650 Drug Levels: Last Trough level: on 09/02/21 at 0944 Last dose given 09/01/21 at 0911 Vancomycin Dosing: Dosing Weight: Actual Target Trough: 15-20 A: Based on: trough P: 1. Change Vancomycin to 750 mg IV q24h 2. Follow up Trough level to be ordered as needed 3. Pharmacy will continue to monitor, follow and adjust therapy as needed. Mitzy Osborn RPH, 09/02/21 [id number]
[2021-09-02 11:00] VITALS: BP 137/38
[2021-09-02] MEDS ORDERED: VANCOMYCIN 750 MG in IV NORMAL SALINE 250ML 250 ML IV SCH (13:00)
[2021-09-02 14:40] VITALS: BP 152/46
[2021-09-02] MEDS: WARFARIN 3 MG TABLET. PO SCH (14:52)
[2021-09-02 19:00] VITALS: BP 112/58
[2021-09-02] MEDS: ATORVASTATIN CALCIUM 40 MG TABLET. PO SCH (20:21)
[2021-09-02] MEDS: FAMOTIDINE 20 MG TABLET. PO SCH (20:21)
[2021-09-02 23:00] VITALS: BP 147/52
[2021-09-03 03:00] VITALS: BP 147/49
[2021-09-03] MEDS: PIPERACILLIN/TAZOBACTAM 4.5 GM in IV DEXTROSE 5% 100ML 100 ML IV SCH ×2 (05:33)
[2021-09-03 07:00] VITALS: BP 142/46
[2021-09-03] MEDS: CARVEDILOL 3.125 MG TABLET. PO SCH (08:00)
[2021-09-03] MEDS: LACTOBACILLUS RHAMNOSUS GG 1 CAPSULE. PO SCH (08:34)
[2021-09-03] MEDS: GABAPENTIN 300 MG CAPSULE. PO SCH (08:35)
[2021-09-03] MEDS: ASPIRIN ENTERIC COATED 81 MG TABLET.DR. PO SCH (08:35)
[2021-09-03] MEDS: SENNOSIDES 8.6 MG TABLET PO SCH (08:35)
[2021-09-03] MEDS: LISINOPRIL 5 MG TABLET. PO SCH (08:35)
[2021-09-03] MEDS: TAMSULOSIN 0.4 MG CAP.ER.24H. PO SCH (08:35)
[2021-09-03] MEDS: MAGNESIUM OXIDE 400 MG TABLET PO SCH (08:35)
[2021-09-03] MEDS: MULTIVITAMIN with MINERAL TABLET. PO SCH (08:36)
[2021-09-03 09:06] LABS: BASO % 1 % (0-3); EOS # 0.1 x10^3/uL (0.0-0.7); EOS % 1 % (0-3); HEMATOCRIT 26.3 % (36.0-47.0); HEMOGLOBIN 8.3 g/dL (12.0-15.5); LYMPH # 0.9 x10^3/uL (1.0-4.8); LYMPH % 21 % (24-48); MEAN CORPUSCULAR HEMOGLOBIN 25 pg (25-35); MEAN CORPUSCULAR HGB CONC 32 g/dL (31-37); MEAN CORPUSCULAR VOLUME 79 fL (79-100); MONO # 0.4 x10^3/uL (0.0-1.1); MONO % 8 % (0-9); NEUT # 3.1 x10^3/uL (1.8-7.7); NEUT % 69 % (31-73); PLATELET COUNT 234 x10^3/uL (140-400); RED BLOOD COUNT 3.31 x10^6/uL (3.50-5.40); RED CELL DISTRIBUTION WIDTH 16.8 % (11.5-14.5); WHITE BLOOD COUNT 4.5 x10^3/uL (4.0-11.0)
[2021-09-03 09:16] LABS: PROTHROMBIN TIME PATIENT 65.7 SEC (11.7-14.0)
[2021-09-03 09:22] LABS: ALBUMIN 1.5 g/dL (3.4-5.0); ALBUMIN/GLOBULIN RATIO 0.3 (1.0-1.7); CALCIUM 7.3 mg/dL (8.5-10.1); GFR 53.1; POTASSIUM 3.5 mmol/L (3.5-5.1); TOTAL BILIRUBIN 0.4 mg/dL (0.2-1.0); TOTAL PROTEIN 5.8 g/dL (6.4-8.2)
[2021-09-03] MEDS ORDERED: PHYTONADIONE 10 MG/ML AMPUL. SQ ONE (10:00)
[2021-09-03 11:00] VITALS: BP 173/64
--- NOTE | 2021-09-03 11:44 | NUR ---
Patient being discharged to inpatient hospice care with [facility]. Will keep IV and lei and D/C wound vac, comfort measures only.
--- NOTE | 2021-09-03 12:34 | DS ---
DATE OF DISCHARGE: 09/03/2021 HOSPITAL COURSE: The patient is an 80-year-old female patient, a resident at [facility], who was admitted with acute hypoxic respiratory failure, COVID-19 infection as well as urinary tract infection. She was also found to have severe peripheral arterial disease with multiple gangrenous wounds on the right lower extremity involving the right big toe, right heel and right calf area. She has multiple pre-existing conditions that include atrial fibrillation, rate controlled, well anticoagulated; nonischemic cardiomyopathy; age-related macular degeneration; hypertension; obstructive sleep apnea; sick sinus syndrome, for which she has a permanent pacemaker; blood loss anemia and chronic combined congestive heart failure. Given the multiple comorbidities and gangrenous wounds, I have spoken with her granddaughter who basically opted for inpatient hospice as the only other alternative is to do a right above-knee amputation, to which the granddaughter was not agreeable and therefore, the patient was discharged to inpatient hospice. PHYSICAL EXAMINATION: GENERAL: On examining her today, she looked pale, but not jaundiced or cyanosed. No lymphadenopathy, no thyromegaly, no jugular venous distention. No limb edema. VITAL SIGNS: Her heart rate was 88, blood pressure was 142/46, temperature 97.8, respiratory rate was 20 and oxygen saturation was 98% on 2 liters of oxygen. HEAD, EYES, EARS, NOSE AND THROAT: Normocephalic, atraumatic. NECK: Supple. HEART: Showed normal first and second heart sounds. No gallop, rub or murmur. CHEST: Clear to auscultation. No crepitation or rhonchi. ABDOMEN: Distended, soft, nontender. NEUROLOGIC: She is lethargic, but arousable. All cranial nerves intact. She moves upper extremities without difficulty. EXTREMITIES: She has a left groin wound covered with wound vacuum-assisted closure device. She has necrotic wounds on the right big toe, right heel and right calf involving the posterior aspect. Given all these comorbidities, the patient was discharged to inpatient hospice. FINAL DISCHARGE DIAGNOSES: 1. COVID-19 infection. 2. Acute hypoxic respiratory failure. 3. Urinary tract infection. 4. Severe peripheral arterial disease with multiple gangrenous wounds on the right lower extremity involving right big toe, right heel and right calf area. 5. She has an indwelling Martinez catheter. 6. The patient has multiple pre-existing conditions that include: A. Atrial fibrillation, rate controlled, well anticoagulated. B. Nonischemic cardiomyopathy. C. Age-related macular degeneration. D. Hypertension. E. Obstructive sleep apnea. F. Sick sinus syndrome, status post permanent pacemaker. G. Blood loss anemia. H. Chronic combined congestive heart failure. RAMYA DR: Fadumo TID: [id number]
== END 2021-09-03 11:52 | disposition hospice, inpatient (51) | DRG 177 ==
LOC: ER 09:25 → 5 SOUTH 10:59
PROVIDERS: ADMIT Internal Medicine; ATTEND Internal Medicine
DX: U07.1 COVID-19 (principal); J96.21 Acute and chronic respiratory failure with hypoxia; I42.8 Other cardiomyopathies; I50.42 Chronic combined systolic (congestive) and diastolic (congestive) heart failure; N39.0 Urinary tract infection, site not specified; E11.52 Type 2 diabetes mellitus with diabetic peripheral angiopathy with gangrene; D50.0 Iron deficiency anemia secondary to blood loss (chronic); E78.5 Hyperlipidemia, unspecified; F03.90 Unspecified dementia, unspecified severity, without behavioral disturbance, psychotic disturbance, mood disturbance, and anxiety; G47.33 Obstructive sleep apnea (adult) (pediatric); H35.30 Unspecified macular degeneration; I11.0 Hypertensive heart disease with heart failure; I48.91 Unspecified atrial fibrillation; I73.9 Peripheral vascular disease, unspecified; J44.9 Chronic obstructive pulmonary disease, unspecified; R79.1 Abnormal coagulation profile; Z79.01 Long term (current) use of anticoagulants; Z86.73 Personal history of transient ischemic attack (TIA), and cerebral infarction without residual deficits; Z87.891 Personal history of nicotine dependence; Z90.710 Acquired absence of both cervix and uterus; Z95.0 Presence of cardiac pacemaker; G62.9 Polyneuropathy, unspecified; M19.90 Unspecified osteoarthritis, unspecified site
CPT/HCPCS: 36415; 36600; 70450; 71045; 80053; 80202; 81001; 82565; 82728; 82805; 83540; 83550; 83605; 84484; 85025; 85027; 85610; 87040; 87086; 87428; 93005; 93926; 96365; 96368; 96375; J1100; J1630; J2543; J3370; J3430; J7030; J7040; J7050; J7060; 99285-25; G0378

== ENCOUNTER 2021-09-03 12:13 | Inpatient (IN) | payer OTHER ==
[~2021-09-03] VITALS: Ht 165.1 cm; Wt 75.5 kg
[~2021-09-03 12:13] MED LIST changes: +FAMO20TA5 PO; +LORA0.5T96 PO
[2021-09-03] MEDS ORDERED: BISACODYL 10 MG SUPP.RECT. PR PRN (12:30)
[2021-09-03] MEDS: SCOPOLAMINE 1.5MG PATCH. TD SCH (12:59)
[2021-09-03] MEDS: MORPHINE SULFATE 30 ML IV PRN (13:05)
[2021-09-03] MEDS: IV NORMAL SALINE 1000ML BAG 1,000 ML IV SCH (13:07)
[2021-09-03 20:00] VITALS: BP 98/33
[2021-09-04] MEDS: MORPHINE SULFATE 30 ML IV PRN ×2 (04:26→18:14)
[2021-09-04 08:00] VITALS: BP 100/25
--- NOTE | 2021-09-04 11:38 | NUR ---
A bolus of 2 mg MS was given at 11:18 am due to hospice working on patient leg wound.
[2021-09-04] MEDS: IV NORMAL SALINE 1000ML BAG 1,000 ML IV SCH (12:30)
--- NOTE | 2021-09-04 13:34 | PN ---
DATE: 09/04/2021 SUBJECTIVE: The patient is resting slightly propped up, sleeping comfortably, in no apparent respiratory distress. Nursing staff did not voice any concern and stated that she has been comfortable. She was given a bolus of morphine before changing the dressings on her wounds. PHYSICAL EXAMINATION: GENERAL: When I examined her, she was pale, but not jaundiced or cyanosed, no lymphadenopathy, no thyromegaly, no jugular venous distention. No limb edema. VITAL SIGNS: Her heart rate was 83, blood pressure was 100/25, temperature was 99.5, respiratory rate was 12, and oxygen saturation was 96% on 2 liters of oxygen. HEAD, EYES, EARS, NOSE, AND THROAT: Normocephalic, atraumatic. NECK: Supple. HEART: Normal first and second heart sounds. No gallop, rub or murmur. CHEST: Shows central trachea, equal bilateral chest expansion, air entry, vesicular breath sounds. No crepitation or rhonchi. ABDOMEN: Distended, soft, nontender. NEUROLOGIC: She is heavily sedated on morphine and Ativan. She has multiple necrotic wounds in the right big toe, right heel and right calf area. She has also wound in the left groin area. It was covered with wound vacuum-assisted closure device. LABORATORY DATA: She has no lab work done. ASSESSMENT: 1. Asymptomatic COVID-19 infection. 2. Acute hypoxic respiratory failure. 3. Urinary tract infection. 4. Severe peripheral vascular disease with multiple gangrenous wounds on the right lower extremity involving right big toe, right heel and right calf area. 5. She has an indwelling Martinez catheter. 6. She has multiple preexisting conditions that include: A. Atrial fibrillation, rate controlled, well anticoagulated. B. Nonischemic cardiomyopathy. C. Age-related macular degeneration. D. Hypertension. E. Obstructive sleep apnea. F. Sick sinus syndrome, status post permanent pacemaker. G. Acute blood loss anemia. H. Chronic combined systolic and diastolic congestive heart failure. PLAN: To continue comfort care with morphine, Ativan, and scopolamine as needed. HARVINDER/JACOB DR: Fadumo TID: [id number]
[2021-09-04 19:26] VITALS: BP 137/39
[2021-09-05 08:00] VITALS: BP 131/35
[2021-09-05] MEDS: MORPHINE SULFATE 30 ML IV PRN ×2 (09:28→16:40)
[2021-09-05] MEDS: IV NORMAL SALINE 1000ML BAG 1,000 ML IV SCH (12:30)
--- NOTE | 2021-09-05 13:36 | PN ---
DATE: 09/05/2021 SUBJECTIVE: The patient was resting, slightly propped up in bed, in no apparent distress. She is on morphine drip and Ativan. She was apparently somewhat restless earlier this morning, she was given some more Ativan. PHYSICAL EXAMINATION: GENERAL: By the time I saw her, she looked well and was clearly in no apparent respiratory distress. She was pale, but no jaundice, cyanosis, no lymphadenopathy, no thyromegaly, no jugular venous distention. No limb edema. VITAL SIGNS: Her heart rate was 89, blood pressure was 131/35, temperature 98.5, respiratory rate was 12 and oxygen saturation was 90% on 2 liters of oxygen. The rest of clinical exam is stable. ASSESSMENT: 1. Asymptomatic COVID-19 infection. 2. Acute hypoxic respiratory failure. 3. Urinary tract infection. 4. Severe peripheral vascular disease with multiple gangrenous wounds on the right lower extremity involving right big toe, right heel and right calf area. 5. She has an indwelling Martinez catheter. 6. The patient has multiple preexisting conditions include: A. Atrial fibrillation, rate controlled, well anticoagulated. B. Nonischemic cardiomyopathy. C. Age-related macular degeneration. D. Hypertension. E. Obstructive sleep apnea. F. Sick sinus syndrome, status post permanent pacemaker. G. Acute blood loss anemia. H. Chronic combined systolic and diastolic congestive heart failure. PLAN: To continue with comfort care. Continue with morphine, Ativan, and scopolamine as needed. KRISS/BENJAMIN DR: Fadumo TID: [id number]
[2021-09-05 19:44] VITALS: BP 131/42
[2021-09-06] MEDS: MORPHINE SULFATE 30 ML IV PRN ×3 (03:46→21:32)
[2021-09-06 08:00] VITALS: BP 115/40
[2021-09-06] MEDS: SCOPOLAMINE 1.5MG PATCH. TD SCH (08:05)
--- NOTE | 2021-09-06 10:36 | PN ---
DATE: 09/06/2021 SUBJECTIVE: The patient is resting, slightly propped up in bed, in no apparent respiratory distress. Nursing staff did not voice any concerns, state that she had generally uneventful night. She continued to be on morphine as well as Ativan. PHYSICAL EXAMINATION: GENERAL: When I saw her, she was pale, but no jaundice, cyanosis, no lymphadenopathy, no thyromegaly, no jugular venous distention. No lower limb edema. VITAL SIGNS: Her heart rate was 92, blood pressure was 115/40, temperature was 98.9, respiratory rate was 10 and oxygen saturation was 96% on 2 liters of oxygen. The rest of the exam stable. ASSESSMENT: 1. Asymptomatic COVID-19 infection. 2. Acute hypoxic respiratory failure. 3. Urinary tract infection. 4. Severe peripheral vascular disease with multiple gangrenous wounds on the right lower extremity involving right big toe, right heel and right calf area. 5. She has an indwelling Martinez catheter. 6. The patient has multiple preexisting conditions include: A. Atrial fibrillation, rate controlled, well anticoagulated. B. Nonischemic cardiomyopathy. C. Age-related macular degeneration. D. Hypertension. E. Obstructive sleep apnea. F. Sick sinus syndrome, status post permanent pacemaker placement. G. Acute blood loss anemia. H. Chronic combined systolic and diastolic congestive heart failure. PLAN: To continue with comfort care. She is now on morphine, Ativan, and scopolamine as needed. TAMEKA DR: Fadumo TID: [id number]
--- NOTE | 2021-09-06 12:04 | NUR ---
I have read the assessment documentation by Monico Hoskins and concur. Javy Zaidi RN [facility]
[2021-09-06] MEDS: IV NORMAL SALINE 1000ML BAG 1,000 ML IV SCH (12:30)
[2021-09-06 20:34] VITALS: BP 127/39
--- NOTE | 2021-09-07 04:09 | NUR ---
Pt. @ 0305. Prononced by Lily Aj RN and Thais Doherty RN. Dr. Romero, [facility], [facility] , Nursing printing and stamping supervisor, [facility], Frankie (son), David (DPOA) were all notified. Postmortum care performed. Martinez and IV d/c'd. NO personal belongings. Body transfered down to the [facility] [place].
== END 2021-09-07 04:38 | DRG 177 ==
LOC: 5 SOUTH 12:13
PROVIDERS: ADMIT Internal Medicine; ATTEND Internal Medicine
DX: U07.1 COVID-19 (principal); J96.01 Acute respiratory failure with hypoxia; D62 Acute posthemorrhagic anemia; I42.8 Other cardiomyopathies; I50.42 Chronic combined systolic (congestive) and diastolic (congestive) heart failure; N39.0 Urinary tract infection, site not specified; G47.33 Obstructive sleep apnea (adult) (pediatric); H35.30 Unspecified macular degeneration; I11.0 Hypertensive heart disease with heart failure; I48.91 Unspecified atrial fibrillation; I73.9 Peripheral vascular disease, unspecified; Z95.0 Presence of cardiac pacemaker; Z88.2 Allergy status to sulfonamides; Z88.8 Allergy status to other drugs, medicaments and biological substances
CPT/HCPCS: J2060; J2270; J7030; G0378